=== PATIENT | female | born 1945 | race Caucasian/White ===

== ENCOUNTER → 2016-11-30 | Outpatient (CLI) | payer MEDICARE, OTHER | END | disposition home or self-care (01) | LOC: RAD.S 11-26 16:22 | DX: R11.0 Nausea (principal); R63.4 Abnormal weight loss; R91.8 Other nonspecific abnormal finding of lung field ==

== ENCOUNTER → 2016-12-10 | Outpatient (CLI) | payer MEDICARE, OTHER | END | disposition home or self-care (01) | LOC: THER.SSS 09:54 → PTH.S 10:00 | DX: R11.0 Nausea (principal); R63.4 Abnormal weight loss ==